=== PATIENT | male | born 1995 | race Caucasian/White ===

== ENCOUNTER 2020-08-07 19:18 | Emergency (ER) | payer SELFPAY ==
--- NOTE | ~2020-08-07 | XR_ITS ---
XR knee RT 3V DATE: 08/07/2020 19:36 INDICATION: Patient was walking and felt a pop. Swelling. TECHNIQUE: 3 views COMPARISON: None FINDINGS: No fracture or dislocation or significant joint effusion. No periosteal reaction or bone de struction. Joint spaces are preserved. No radiopaque intraarticular loose body or chondrocalcinosis. IMPRESSION: No significant abnormality Reviewed, dictated and finalized at location A. IMPRESSION: No significant abnormality
[2020-08-07 19:20] VITALS: BP 204/81; PULSE 110; RESP 16; TEMP 36.7; O2SAT 100
--- NOTE | 2020-08-07 20:05 | ED.EXTPRO ---
HPI - Extremity Problem General Chief complaint: Extremity Problem,Nontraumatic Stated complaint: right knee pain Time Seen by Provider: 08/07/20 19:54 Source: patient Mode of arrival: ambulatory Limitations: no limitations History of Present Illness HPI Narrative: This is a 25 year old male that presents to the ER for right knee pain and swelling x 2 days. Reports when he was walking he felt a pop. Reports he noted swelling to the knee that has persisted since then. Reports pain with walking. Denies fever, erythema, decreased ROM or numbness. Related Data Allergies Allergy/AdvReac Type Severity Reaction Status Date / Time No Known Allergies Allergy Unverified 08/15/14 00:25 Review of Systems Review of Systems: Narrative: CONSTITUTIONAL: Denies fever SKIN: Denies rash MUSCULOSKELETAL: Reports joint pain, and myalgia. NEUROLOGIC: Denies numbness All systems reviewed & are unremarkable except as noted in HPI and below PMFSH Family History Family History (Updated 12/22/13 @ 07:13 by DOCTOR UNKNOWN) Father Hypertension Social History Social History (Updated 08/07/20 @ 20:08 by Alisa Summers PA-C) Smoking status: Never smoker Substance use: never Exam Narrative: Exam Narrative: GENERAL: Well-appearing, well-nourished, and in no acute distress. HEAD: Normocephalic, atraumatic. EYES: EOMI. EXTREMITIES: Normal range of motion. No erythema or warmth of the right knee. Swelling of the right pre-patellar bursa. Normal DP pulses. Normal sensation SKIN: Warm, dry, no rash. NEURO: No focal deficits. Alert and oriented x3. PSYCH: Normal mood and affect Course Vital Signs Vital signs: Vital Signs Temperature 98.0 F 08/07/20 19:20 Pulse Rate 110 H 08/07/20 19:20 Respiratory Rate 16 08/07/20 19:20 Blood Pressure 204/81 H 08/07/20 19:20 Pulse Oximetry 100 08/07/20 19:20 Temperature 98.0 F 08/07/20 19:20 Pulse Rate 110 H 08/07/20 19:20 Respiratory Rate 16 08/07/20 19:20 Blood Pressure 204/81 H 08/07/20 19:20 Pulse Oximetry 100 08/07/20 19:20 MDM - Extremity (Nontraumatic) MDM Narrative Medical decision making narrative: Patient presents the emergency department for right knee swelling x2 days. 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 No certain injury or trauma. He is afebrile and nontoxic-appearing. No erythema or warmth of the knee. On exam consistent with prepatellar bursitis. Right knee x-ray is without acute findings. Patient was instructed on care of bursitis. Will be given orthopedics for follow-up. He was given warnings to return to the ER Blood pressure noted to be elevated on arrival to 204 systolic. This did downtrend on its own. Most recent blood pressure 160 systolic. Patient was instructed that he should follow-up with a primary care provider for this. He is asymptomatic Imaging Data Radiologist's impression: ITS Impressions Knee X-Ray 08/07/20 19:54 IMPRESSION: No significant abnormality Critical Care Time Critical Care Time Critical Care Time: No Discharge Plan Discharge Clinical Impression: Bursitis, prepatellar, right Hypertension Qualifiers: Hypertension type: unspecified Qualified Code(s): I10 - Essential (primary) hypertension Patient Disposition: Home, Self-Care Condition: Stable Instructions: Knee Bursitis (ED), Hypertension (ED) Additional Instructions: Return to the emergency department if you experience fever, redness and swelling of your leg, or any other symptoms that are concerning to you Rest. Wear YSABEL wrap. Ice and elevate extremity. Pain medication as needed and directed. Follow up with orthopedics for further care. You should also follow up with a primary care doctor for your blood pressure Follow-up/Referrals: Néstor Gaffney MD [Physician] - 3 Days PHYSICIAN,RAIL SIGNAL MECHANIC [Primary Care Provider] - Denny Cabrera MD [Physician] - 3 Days Stand Alone Forms: Work/School Release IP
[2020-08-07 20:43] VITALS: BP 160/77; PULSE 113; RESP 18; O2SAT 99
== END 2020-08-07 20:55 | disposition home or self-care (01) ==
PROVIDERS: Emergency Provider Emergency Medicine
DX: M70.41 Prepatellar bursitis, right knee (principal); I10 Essential (primary) hypertension
CPT/HCPCS: 73562; 99283

== ENCOUNTER 2021-12-16 09:28 | Emergency (ER) | payer SELFPAY ==
--- NOTE | ~2021-12-16 | US_ITS ---
EXAMINATION: US scrotum doppler DATE: 12/16/2021 10:02 INDICATION: Right testicular pain. TECHNIQUE: Grayscale and Doppler ultrasound images of the testes were obtained. COMPARISON: None. FINDINGS: The right testis measures 4.9 x 2.4 x 2.9 cm. The left testis measures 4.6 x 2.0 x 2.9 cm. There is normal vascular flow to both testes. The right epididymis is normal with normal vascular norsi w. The left epididymis is normal with normal vascular flow. There is no varicocele or hydrocele. IMPRESSION: 1. Normal testes. Reviewed, dictated and finalized at location A. IMPRESSION: 1. Normal testes.
[2021-12-16 09:29] VITALS: BP 171/78; PULSE 93; RESP 16; TEMP 36.6; O2SAT 99
[2021-12-16] MEDS: IBUPROFEN 600 MG TABLET PO (10:26)
--- NOTE | 2021-12-16 10:26 | ED.GENADULT ---
HPI - General Adult General Chief complaint: Urogenital-Male Stated complaint: right testicular pain Time Seen by Provider: 12/16/21 09:44 Source: RN notes reviewed History of Present Illness HPI narrative: Patient presents emergency room from home for testicular pain. Patient states he been having pain in his right testicle for the past 2 weeks. Pain is located over the posterior portion testicle does not radiate described as aching in nature. Nothing makes the pain better or worse. Denies any fevers or chills abdominal pain dysuria or urethral discharge or any other symptoms denies any risk of STD Related Data Allergies Allergy/AdvReac Type Severity Reaction Status Date / Time No Known Allergies Allergy Unverified 08/15/14 00:25 Review of Systems Review of Systems: Gen.: Denies fevers or chills ENT: Denies congestion Respiratory: Denies shortness of breath or cough CV: Denies chest pain or palpitations GI: Denies abdominal pain nausea, emesis see HPI Musculoskeletal: Denies back pain or muscle pain Neuro: Denies numbness, tingling, weakness or focal weakness Skin: Denies rash Except as documented, all other systems reviewed and negative [facility] Past Medical History Medical History (Updated 12/16/21 @ 11:03 by Nir Wallis DO) Patient denies significant medical history Family History Family History (Updated 12/22/13 @ 07:13 by DOCTOR UNKNOWN) Father Hypertension Social History Social History Smoking status: Never smoker Substance use: never Exam Narrative: APPEARANCE: No acute distress, nontoxic, resting in bed EYES: EOMI HEENT: Normocephalic, atraumatic, RESPIRATORY: No respiratory distress Clear to auscultation bilaterally with no rhonchi wheezing or rales. CARDIOVASCULAR: Regular rate and rhythm without murmurs rubs or gallops. ABDOMINAL: Soft, nontender, nondistended, no rebound or guarding : No skin lesions seen circumcised male no scrotal swelling or erythema left testicle is nontender palpation right testicle is tender over the posterior aspect no hernias palpated MUSCULOSKELETAl: Moves all extremities. No clubbing, cyanosis or edema. NEURO: Awake and alert. Following commands, speech normal, no focal deficits SKIN:: Warm, dry. No rashes lesions or abrasions PSYCHIATRIC: Normal affect/mood, Course Course Emergency Course: Discussed with Dr. Zuniga presentation work-up agrees with plan for discharge and follow-up as an outpatient. At this time with pain for 2 weeks normal ultrasound negative UA recommends antibiotics Discussed with patient results of workup and diagnosis. Discussed need for follow-up with primary care, proper use of medication, and reasons to return to the emergency department. Patient understands and agrees to current treatment plan Vital Signs Vital signs: Vital Signs Temperature 97.9 F 12/16/21 09:29 Pulse Rate 93 12/16/21 09:29 Respiratory Rate 16 12/16/21 09:29 Blood Pressure 171/78 H 12/16/21 09:29 Pulse Oximetry 99 12/16/21 09:29 Oxygen Delivery Room Air 12/16/21 09:29 Temperature 97.9 F 12/16/21 09:29 Pulse Rate 93 12/16/21 09:29 Respiratory Rate 16 12/16/21 09:29 Blood Pressure 171/78 H 12/16/21 09:29 Pulse Oximetry 99 12/16/21 09:29 Oxygen Delivery Room Air 12/16/21 09:29 Medical Decision Making Vital Signs Vital Signs: Vital Signs Temperature 97.9 F 12/16/21 09:29 Pulse Rate 93 12/16/21 09:29 Respiratory Rate 16 12/16/21 09:29 Blood Pressure 171/78 H 12/16/21 09:29 Pulse Oximetry 99 12/16/21 09:29 Oxygen Delivery Room Air 12/16/21 09:29 Temperature 97.9 F 12/16/21 09:29 Pulse Rate 93 12/16/21 09:29 Respiratory Rate 16 12/16/21 09:29 Blood Pressure 171/78 H 12/16/21 09:29 Pulse Oximetry 99 12/16/21 09:29 Oxygen Delivery Room Air 12/16/21 09:29 Lab Data Labs: Lab Results 12/16/21 Range/U
[2021-12-16 10:28] LABS: Appearance Urine Clear (Clear); Bilirubin Urine 1+ (Negative); Blood Urine Negative (Negative); Color Urine Amber (Yellow); Glucose Urine UA Negative (Negative); Ketones Urine Trace mg/dL (Negative); Leukocyte Esterase Ur Negative LEU/UL (Negative); Nitrate Urine Negative (Negative); Protein Urine 2+ mg/dL (Negative); Specific Grav Ur >= 1.030 (1.001-1.035); pH Urine 5.5 (5.0-9.0)
[2021-12-16 10:40] LABS: Mucus Urine Moderate /lpf
[2021-12-16 10:41] LABS: Add Urine Microscopic? YES
[2021-12-16 11:14] VITALS: BP 140/76; PULSE 92; RESP 16; O2SAT 98
== END 2021-12-16 11:16 | disposition home or self-care (01) ==
PROVIDERS: Emergency Provider Emergency Medicine
DX: N50.811 Right testicular pain (principal)
CPT/HCPCS: 76870; 81001; 87086; 93976; 99284; A9270

== ENCOUNTER 2021-12-23 15:10 | Emergency (ER) | payer SELFPAY ==
--- NOTE | ~2021-12-23 | US_ITS ---
EXAMINATION: US scrotum doppler DATE: 12/23/2021 16:58 INDICATION: testicular pain . TECHNIQUE: Grayscale and Doppler ultrasound images of the testes were obtained. COMPARISON: 12/16/2021 FINDINGS: The right testis measures 4.8 x 2.2 x 3.1 cm. The left testis measures 4.9 x 2.1 x 2.6 cm. No testicular mass. There is normal vascular flow to both testes. The right epididymis is normal with normal vascular flow. The left epididymis is normal with normal vascular flow. No hydrocele. Bilater al varicoceles. IMPRESSION: Bilateral varicoceles. Reviewed, dictated and finalized at location K. IMPRESSION: Bilateral varicoceles.
[2021-12-23 15:50] VITALS: BP 128/62; PULSE 119; RESP 18; TEMP 36.3; O2SAT 99
--- NOTE | 2021-12-23 15:51 | ED.MALEGU ---
HPI - Male Genitourinary General Chief complaint: Urogenital-Male Stated complaint: testicular pain x 1 week Time Seen by Provider: 12/23/21 15:51 History of Present Illness HPI Narrative: 26-year-old male presents the emergency room with ongoing bilateral testicular pain. Patient was evaluated emergency room last week and was found to have a normal scrotal ultrasound. Patient was told to follow-up with Dr. Mishra at that time. Patient states he continues to have intermittent bilateral testicular pain, that is usually worse when he is active. Denies any dysuria. States he has been taking ibuprofen with good pain relief. Related Data Allergies Allergy/AdvReac Type Severity Reaction Status Date / Time No Known Allergies Allergy Unverified 08/15/14 00:25 Review of Systems Review of Systems: CONSTITUTIONAL: Denies fever, chills, or sweats. EYES: Denies visual changes, redness, or discharge. ENT: Denies rhinorrhea, congestion, sore throat, or otalgia. CARDIOVASCULAR: Denies chest pain, palpitations, or edema. RESPIRATORY: Denies cough or dyspnea. GASTROINTESTINAL: Denies abdominal pain, nausea, vomiting, or diarrhea. GENITOURINARY: Reports testicular pain SKIN: Denies rash or itching. MUSCULOSKELETAL: Denies back pain, joint pain, or myalgia. NEUROLOGIC: Denies headache, numbness, dizziness, or weakness. PSYCHIATRIC: Denies anxiety or depression. PMFSH Past Medical History Medical History Patient denies significant medical history Family History Family History Father Hypertension Social History Social History Smoking status: Never smoker Substance use: never Exam Narrative: GENERAL: Well-appearing, well-nourished, no physical limitations, and in no acute distress. HEAD: Normocephalic, atraumatic. EYES: Conjunctivae normal, PERRLA and EOMI. CHEST: Clear to auscultation. No respiratory distress. No wheezes rales or rhonchi. No tenderness. HEART: Regular rate and rhythm. No murmur heard. Normal peripheral pulses. ABDOMEN: Soft, nontender, nondistended, normal active bowel sounds. : Normal external male exam. Negative Prehn sign. Cremasteric reflex present bilaterally EXTREMITIES: Normal range of motion. No edema. No clubbing or cyanosis SKIN: Warm, dry, no rash. No noted wounds NEURO: No focal deficits. Alert and oriented x3. MAEW. CN's II-XI intact bilaterally, normal gait PSYCH: Cooperative. Normal mood and affect. Course Vital Signs Vital signs: Vital Signs Temperature 36.3 C L 12/23/21 15:50 Pulse Rate 119 H 12/23/21 15:50 Respiratory Rate 18 12/23/21 15:50 Blood Pressure 128/62 12/23/21 15:50 Pulse Oximetry 99 12/23/21 15:50 Oxygen Delivery Room Air 12/23/21 15:50 Temperature 36.3 C L 12/23/21 15:50 Pulse Rate 119 H 12/23/21 15:50 Respiratory Rate 18 12/23/21 15:50 Blood Pressure 128/62 12/23/21 15:50 Pulse Oximetry 99 12/23/21 15:50 Oxygen Delivery Room Air 12/23/21 15:50 MDM - Male Genitourinary Lab Data Result diagrams: 12/23/21 17:34 Labs: Lab Results 12/23/21 12/23/21 Range/Units 17:34 17:36 WBC 14.1 H (4.5-10.0) K/mm3 RBC 4.94 (4.6-6.20) M/mm3 Hgb 16.1 (14.0-18.0) g/dL Hct 46.2 (42.0-52.0) % MCV 93.5 (80-100) fl MCH 32.6 (26-34) pg MCHC 34.8 (32-36) g/dl RDW 12.9 (11.5-14.5) % Plt Count 303 (150-375) k/mm3 MPV 9.4 (7.4-10.4) fl Immature Gran % (Auto) 0.4 (0-0.5) % Neut % (Auto) 63.1 (45.5-73.1) % Lymph % (Auto) 26.7 (18.3-44.2) % [place] % (Auto) 6.0 (2.6-8.5) % Eos % (Auto) 3.2 (0-4.4) % Baso % (Auto) 0.6 (0.2-1.2) % Lymph # (Auto) 3.77 H (0.9-3.2) K/mm3 [place] # (Auto) 0.8 H (0.1-0.6) K/mm3 Eos # (Auto) 0.5 H (0-0.3) K/mm3 Baso # (Auto) 0.1 (0.0-0.1) K/mm3 Abs Immat Gran (
[2021-12-23 17:43] LABS: Basophils Absolute Auto 0.1 K/mm3 (0.0-0.1); Basophils Percent Auto 0.6 % (0.2-1.2); Eosinophils Absolute Auto 0.5 K/mm3 (0-0.3); Eosinophils Percent Auto 3.2 % (0-4.4); Hematocrit 46.2 % (42.0-52.0); Hemoglobin 16.1 g/dL (14.0-18.0); Immature Granulocyte Absolute 0.06 K/mm3 (0.00-0.031); Immature Granulocyte Percent A 0.4 % (0-0.5); Lymphocytes Absolute Auto 3.77 K/mm3 (0.9-3.2); Lymphocytes Percent Auto 26.7 % (18.3-44.2); Mean Corpuscular HGB Conc 34.8 g/dl (32-36); Mean Corpuscular Hemoglobin 32.6 pg (26-34); Mean Corpuscular Volume 93.5 fl (80-100); Mean Platelet Volume 9.4 fl (7.4-10.4); Monocytes Absolute Auto 0.8 K/mm3 (0.1-0.6); Neutrophils Absolute Auto 8.9 K/mm3 (1.3-6.7); Neutrophils Percent Auto 63.1 % (45.5-73.1); Platelet Count Result 303 k/mm3 (150-375); Red Blood Count 4.94 M/mm3 (4.6-6.20); Red Cell Distribution Width 12.9 % (11.5-14.5); White Blood Count 14.1 K/mm3 (4.5-10.0)
[2021-12-23 17:43] LABS: Appearance Urine Clear (Clear); Bilirubin Urine 1+ (Negative); Blood Urine Negative (Negative); Color Urine Yellow (Yellow); Glucose Urine UA Negative (Negative); Ketones Urine Negative (Negative); Leukocyte Esterase Ur Negative LEU/UL (Negative); Nitrate Urine Negative (Negative); Protein Urine Trace mg/dL (Negative); Specific Grav Ur >= 1.030 (1.001-1.035)
[2021-12-23 17:46] LABS: Mucus Urine Heavy /lpf; RBC Urine 0-2 /hpf (0-2); Squamous Epithelial Cell Urine Rare /hpf (Few); WBC Urine 0-3 /hpf
[2021-12-23 18:00] LABS: Add Urine Microscopic? YES
== END 2021-12-23 18:11 | disposition home or self-care (01) ==
PROVIDERS: Emergency Provider Nurse Practitioner Family
DX: I86.1 Scrotal varices (principal)
CPT/HCPCS: 36415; 76870; 81001; 85025; 93976; 99284